=== PATIENT | male | born 1960 | race Two or more races ===

== ENCOUNTER 2019-12-08 13:05 | Outpatient (CLI) | payer OTHER ==
[2019-12-08] MEDS ORDERED: ALBU8.5H8 INH (13:53)
[2019-12-08] MEDS ORDERED: DULO20CA45 PO (13:53)
[2019-12-08] MEDS ORDERED: ASCO100018 PO (13:53)
[2019-12-08] MEDS ORDERED: HYDR-3241 PO (13:53)
[2019-12-08] MEDS ORDERED: LEVO112T4 PO (13:53)
[2019-12-08] MEDS ORDERED: LIDOCAINE PATCH 5% TD (13:53)
[2019-12-08 13:58] LABS: BASOPHILS # (AUTO) 0.04 x10^3/uL (0-0.1); BASOPHILS % (AUTO) 1 % (0-1); EOSINOPHILS # (AUTO) 0.18 x10^3/uL (0-0.4); EOSINOPHILS % (AUTO) 3 % (1-7); LYMPHOCYTES # (AUTO) 1.83 x10^3/uL (1-3.4); LYMPHOCYTES % (AUTO) 32 % (22-44); MD NO; MEAN CORPUSCULAR HEMOGLOBIN 31.6 pg (27.5-34.5); MEAN PLATELET VOLUME 7.8 fL (7.4-10.4); MONOCYTES # (AUTO) 0.49 x10^3/uL (0.2-0.8); MONOCYTES % (AUTO) 9 % (2-9); NEUTROPHILS # (AUTO) 3.15 x10^3/uL (1.8-6.8); NEUTROPHILS % (AUTO) 55 % (42-75); PLATELET COUNT 291 x10^3/uL (130-400); RED BLOOD COUNT 4.73 x10^6/uL (4.38-5.82); RED CELL DISTRIBUTION WIDTH 13.2 % (9.4-14.8)
[2019-12-08 14:06] LABS: INTERNATIONAL NORMALIZED RATIO 0.94 (0.93-1.1)
[2019-12-08 14:10] LABS: ANION GAP 6 mmol/L (5-15); CALCIUM 8.8 mg/dL (8.5-10.1); CHLORIDE 111 mmol/L (98-107); CREATININE 1.28 mg/dL (0.7-1.3)
== END 2019-12-08 23:59 | disposition home or self-care (01) ==
LOC: STAR 13:05
PROVIDERS: ATTEND Orthopaedic Surgery
DX: Z01.818 Encounter for other preprocedural examination (principal); M17.11 Unilateral primary osteoarthritis, right knee; M25.561 Pain in right knee
CPT/HCPCS: 36415; 80048; 83036; 85025; 85610; 85730; 87081; 87806; 93005; G0475

== ENCOUNTER 2019-12-12 10:24 | Observation (INO) | payer OTHER ==
[~2019-12-12] VITALS: Ht 175.3 cm; Wt 86.0 kg
[~2019-12-12 10:24] MED LIST: ALBU8.5H8 INH; ASCO100018 PO; DULO20CA45 PO; HYDR-3241 PO; KETOROLAC 60 MG/2 ML ONE; LEVO112T4 PO; LIDOCAINE PATCH 5% TD; ROPIvacaine/PF 0.2%, 20 ML ONE; SODIUM CHLORIDE 0.9% 50 ML ONE; TRANEXAMIC ACID 100 MG/ML, 10ML ONE
[2019-12-12] MEDS ORDERED: LACTATED RINGERS 1,000 ML IV SCH (10:37)
[2019-12-12] MEDS ORDERED: CHLORHEXIDINE 15 ML UDC MM STA (10:38)
[2019-12-12] MEDS ORDERED: CHLORHEXIDINE 15 ML UDC ONE (10:47)
[2019-12-12] MEDS ORDERED: GABAPENTIN 300 MG CAPSULE PO ONE (11:00)
[2019-12-12] MEDS ORDERED: ACETAMINOPHEN 500 MG TABLET PO ONE (11:00)
[2019-12-12] MEDS ORDERED: MIDAZOLAM 1 MG/ML, 2ML ONE (12:05)
[2019-12-12] MEDS ORDERED: FENTANYL PF 250 MCG/5ML ONE (12:05)
[2019-12-12] MEDS ORDERED: PROMETHAZINE 25 MG/ML, 1ML IM PRN (13:00)
[2019-12-12] MEDS ORDERED: HYDROmorphone 1 MG/ML, 1ML INJ IVPush PRN (13:00)
[2019-12-12] MEDS ORDERED: ONDANSETRON 4 MG TABLET PO PRN (13:00)
[2019-12-12] MEDS ORDERED: PSYLLIUM PACKET PO PRN (13:00)
[2019-12-12] MEDS ORDERED: ONDANSETRON 2MG/ML, 2ML IVPush PRN ×2 (13:00→14:00)
[2019-12-12] MEDS ORDERED: ALUMINUM/MAG/SIMETHICONE 30 ML UDC PO PRN (13:00)
[2019-12-12] MEDS ORDERED: SENNA/DOCUSATE TABLET PO PRN (13:00)
[2019-12-12] MEDS ORDERED: BISACODYL 10 MG SUPP PR PRN (13:00)
[2019-12-12] MEDS ORDERED: POLYETHYLENE GLYCOL 17 GM PACKET PO PRN (13:00)
[2019-12-12] MEDS ORDERED: DIPHENHYDRAMINE 25 MG CAPSULE PO PRN (13:00)
[2019-12-12] MEDS ORDERED: DIPHENHYDRAMINE 50 MG/ML, 1ML IVPush PRN (13:00)
[2019-12-12] MEDS ORDERED: MAGNESIUM HYDROXIDE 8%, 30ML UDC PO PRN (13:00)
[2019-12-12] MEDS ORDERED: GLYCOPYRROLATE 0.2MG/1ML, 5ML ONE (13:36)
[2019-12-12] MEDS ORDERED: DEXAMETHASONE 4 MG/ML, 1ML ONE (13:36)
[2019-12-12] MEDS ORDERED: PROPOFOL 10 MG/ML, 20ML ONE (13:36)
[2019-12-12] MEDS ORDERED: CEFAZOLIN 1,000 MG ONE (13:36)
[2019-12-12] MEDS ORDERED: NEOSTIGMINE 1 MG/ML, 10ML ONE (13:36)
[2019-12-12] MEDS ORDERED: ROCURONIUM 10MG/ML,5ML ONE (13:36)
[2019-12-12] MEDS ORDERED: ONDANSETRON 2MG/ML, 2ML ONE (13:36)
[2019-12-12] MEDS ORDERED: LIDOCAINE-MPF 2% ,5ML ONE (13:36)
[2019-12-12] MEDS ORDERED: ACETAMINOPHEN 325 MG TABLET PO PRN (14:00)
[2019-12-12] MEDS ORDERED: DIAZEPAM 5 MG/ML, 2ML IVPush PRN (14:00)
[2019-12-12] MEDS ORDERED: MEPERIDINE/PF 25MG/0.5ML IVPush PRN (14:00)
[2019-12-12] MEDS ORDERED: PROMETHAZINE 25 MG/ML, 1ML IVPush PRN (14:00)
[2019-12-12] MEDS ORDERED: OXYcodone 5 MG/5 ML ORAL.SOL UDC PO PRN (14:00)
[2019-12-12] MEDS ORDERED: MEPERIDINE/PF 25MG/ML,1ML ONE (15:22)
[2019-12-12] MEDS ORDERED: FENTANYL PF 100 MCG/2ML ONE (15:22)
[2019-12-12] MEDS ORDERED: OXYcodone 5 MG/5 ML ORAL.SOL UDC ONE (15:22)
[2019-12-12] MEDS ORDERED: HYDROmorphone 1 MG/ML, 1ML INJ ONE ×2 (15:22→16:03)
[2019-12-12] MEDS: FENTANYL PF 100 MCG/2ML IV PRN ×2 (15:38→15:46)
[2019-12-12] MEDS: HYDROmorphone 1 MG/ML, 1ML INJ IVPush PRN ×4 (15:53→16:16)
[2019-12-12] MEDS ORDERED: TRANEXAMIC ACID 1,000 MG in SODIUM CHLORIDE 0.9% 100 ML IVPB ONE (16:00)
[2019-12-12] MEDS ORDERED: ALBUTEROL HFA 90 MCG/SPRAY INH PRN (17:30)
[2019-12-12] MEDS: DULOXETINE 20 MG CAPSULE.DR PO SCH (17:38)
[2019-12-12] MEDS: OXYcodone IR 5MG TABLET PO PRN ×2 (19:35→23:56)
[2019-12-12 19:58] VITALS: BP 118/74
[2019-12-12] MEDS ORDERED: ASPIRIN 81 MG TABLET EC PO SCH (21:00)
[2019-12-12] MEDS: D5%-0.45NACL+KCL 20MEQ 1,000 ML IV SCH (21:27)
[2019-12-12] MEDS: CEFAZOLIN PMX 1GM/50ML 50 ML IVPB SCH (21:27)
[2019-12-12] MEDS: DOCUSATE 100 MG CAPSULE PO SCH (21:31)
[2019-12-12 23:35] VITALS: BP 122/70
[2019-12-13] MEDS: ACETAMINOPHEN 650 MG/20.3 ML UDC PO PRN ×2 (00:02→09:40)
[2019-12-13] MEDS: D5%-0.45NACL+KCL 20MEQ 1,000 ML IV SCH (01:50)
[2019-12-13 03:36] VITALS: BP 123/72
[2019-12-13] MEDS: OXYcodone IR 5MG TABLET PO PRN ×3 (03:57→12:05)
[2019-12-13] MEDS: CEFAZOLIN PMX 1GM/50ML 50 ML IVPB SCH (05:29)
[2019-12-13] MEDS ORDERED: RIVAROXABAN 10 MG TABLET PO SCH (06:00)
[2019-12-13] MEDS ORDERED: DEXAMETHASONE 4 MG/ML, 1ML IVPush SCH (06:00)
[2019-12-13] MEDS ORDERED: LEVOTHYROXINE 112 MCG TABLET PO SCH (06:00)
[2019-12-13 07:11] VITALS: BP 127/72
[2019-12-13] MEDS: DOCUSATE 100 MG CAPSULE PO SCH (07:53)
[2019-12-13] MEDS: DULOXETINE 20 MG CAPSULE.DR PO SCH (07:53)
[2019-12-13] MEDS ORDERED: TAMSULOSIN 0.4 MG CAP.ER.24H PO SCH (09:00)
[2019-12-13] MEDS ORDERED: RIVA10TA2 PO (09:55)
[2019-12-13 12:20] VITALS: BP 113/70
== END 2019-12-13 14:00 | disposition home or self-care (01) ==
LOC: OUT 10:24 → ORIP 12:58 → 4NE 16:36
PROVIDERS: ADMIT Orthopaedic Surgery; ATTEND Orthopaedic Surgery
DX: Z03.818 Encounter for observation for suspected exposure to other biological agents ruled out (principal); M17.31 Unilateral post-traumatic osteoarthritis, right knee; J45.909 Unspecified asthma, uncomplicated; G89.29 Other chronic pain; M54.9 Dorsalgia, unspecified; Z79.899 Other long term (current) drug therapy
CPT/HCPCS: 27447; 36415; 73560; 85014; 85018; 87635; 96365; 96366; 96375; 97110; 97161; C1713; C1776; G0378; J0690; J1100; J1170; J2175; J2250; J2405; J2704; J2710; J2795; J3010; J3480; J3490; J7120; Q0163; J1885

== ENCOUNTER → 2020-01-26 | Outpatient (CLI) | payer OTHER ==
[~2020-01-26] MED LIST changes: -KETOROLAC 60 MG/2 ML ONE; +RIVA10TA2 PO; -ROPIvacaine/PF 0.2%, 20 ML ONE; -SODIUM CHLORIDE 0.9% 50 ML ONE; -TRANEXAMIC ACID 100 MG/ML, 10ML ONE
== END | disposition home or self-care (01) ==
LOC: STAR 15:33
PROVIDERS: ATTEND Anesthesiology
DX: Z01.812 Encounter for preprocedural laboratory examination (principal); Z20.828 Contact with and (suspected) exposure to other viral communicable diseases
CPT/HCPCS: 36415; 87635

== ENCOUNTER 2020-01-30 08:16 | Day surgery (SDC) | payer OTHER ==
[~2020-01-30] VITALS: Ht 175.3 cm; Wt 86.6 kg
[2020-01-30] MEDS ORDERED: FENTANYL PF 100 MCG/2ML ONE ×3 (08:33→10:27)
[2020-01-30] MEDS ORDERED: ROPIvacaine/PF 0.5%, 30 ML ONE (08:34)
[2020-01-30] MEDS ORDERED: CHLORHEXIDINE 15 ML UDC MM STA (08:54)
[2020-01-30] MEDS ORDERED: LACTATED RINGERS 1,000 ML IV SCH (08:54)
[2020-01-30 08:55] VITALS: BP 112/74
[2020-01-30] MEDS ORDERED: TRAMADOL (09:03)
[2020-01-30] MEDS ORDERED: ACET-1600 PO (09:03)
[2020-01-30] MEDS ORDERED: OXYC10TA6 PO (09:03)
[2020-01-30] MEDS ORDERED: methylPREDNISolone *ACETATE* 40 MG/ML ONE (09:09)
[2020-01-30] MEDS ORDERED: ACETAMINOPHEN 500 MG TABLET PO STA (09:09)
[2020-01-30] MEDS ORDERED: BUPIVACAINE/PF 0.5% ONE (09:09)
[2020-01-30] MEDS ORDERED: ACETAMINOPHEN 500 MG TABLET ONE (09:11)
[2020-01-30] MEDS ORDERED: ROPIvacaine/PF 0.2%, 100ML 550 ML (check volume) INJ ONE (09:30)
[2020-01-30] MEDS ORDERED: PROPOFOL 10 MG/ML, 20ML ONE (09:37)
[2020-01-30] MEDS ORDERED: DEXAMETHASONE 4 MG/ML, 1ML ONE ×3 (09:46)
[2020-01-30] MEDS ORDERED: OXYcodone 5 MG/5 ML ORAL.SOL UDC ONE (09:59)
[2020-01-30] MEDS ORDERED: OXYcodone 5 MG/5 ML ORAL.SOL UDC PO PRN (10:00)
[2020-01-30] MEDS ORDERED: ONDANSETRON 2MG/ML, 2ML IVPush PRN (10:00)
[2020-01-30] MEDS: FENTANYL PF 100 MCG/2ML IV PRN ×3 (10:07→10:28)
== END 2020-01-30 11:45 | disposition home or self-care (01) ==
LOC: OUT 08:16
PROVIDERS: ATTEND Orthopaedic Surgery
DX: T84.82XA Fibrosis due to internal orthopedic prosthetic devices, implants and grafts, initial encounter (principal); J45.909 Unspecified asthma, uncomplicated; E07.9 Disorder of thyroid, unspecified; Z79.890 Hormone replacement therapy; Z79.891 Long term (current) use of opiate analgesic; Z79.899 Other long term (current) drug therapy; Z88.6 Allergy status to analgesic agent; Z88.8 Allergy status to other drugs, medicaments and biological substances; Z82.61 Family history of arthritis; Y83.8 Other surgical procedures as the cause of abnormal reaction of the patient, or of later complication, without mention of misadventure at the time of the procedure
CPT/HCPCS: 27570; J1100; J2704; J2795; J3010; J7120; J1030